=== PATIENT | male | born 1935 | race Hispanic/Latino ===

== ENCOUNTER 2020-07-26 12:36 | Inpatient (IN) | payer OTHER ==
[~2020-07-26] VITALS: Ht 165.1 cm; Wt 76.0 kg
[2020-07-26] MEDS ORDERED: ASPIRIN 325 MG TABLET ONE (13:01)
[2020-07-26 13:55] LABS: BASOPHILS % (AUTO) 0.5 % (0.0-5.0); EOSINOPHILS % (AUTO) 1.8 % (0.0-8.0); HEMATOCRIT 40.3 % (42-54); LYMPHOCYTES % (AUTO) 17.3 % (21.0-51.0); MEAN CORPUSCULAR HEMOGLOBIN 33.9 pg (27.0-33.0); MEAN CORPUSCULAR HGB CONC 34.2 g/dL (32.0-36.0); MONOCYTES % (AUTO) 10.4 % (3.0-13.0); NEUTROPHILS % (AUTO) 69.6 % (40.0-77.0); PLATELET COUNT (AUTO) 140 K/uL (130-400); RED BLOOD CELL COUNT(AUTO) 4.07 MIL/uL (4.50-6.20); RED CELL DISTRIBUTION WIDTH 13.5 % (11.0-15.5); WHITE BLOOD COUNT (AUTO) 8.1 K/uL (4.8-10.8)
[2020-07-26 14:00] LABS: CREATININE 1.2 mg/dL (0.5-1.5)
[2020-07-26 14:05] LABS: ALBUMIN 3.6 g/dL (3.5-5.0); TOTAL PROTEIN, SERUM 6.8 g/dL (6.0-8.3)
[2020-07-26 14:07] LABS: INR 1.12 (0.85-1.15); PARTIAL THROMBOPLASTIN TIME 28.2 SEC (26.3-35.5)
[2020-07-26 22:16] LABS: INR 1.18 (0.85-1.15); PROTHROMBIN TIME 12.7 SEC (9.6-11.6)
[2020-07-26 23:58] VITALS: BP 134/86
[2020-07-27] MEDS ORDERED: PREG50CA63 PO (02:47)
[2020-07-27] MEDS ORDERED: MULT-1367 PO (02:47)
[2020-07-27] MEDS ORDERED: UBID100C10 PO (02:47)
[2020-07-27] MEDS ORDERED: AEC81 PO (02:47)
[2020-07-27] MEDS ORDERED: PREG25CA18 PO (02:47)
[2020-07-27] MEDS ORDERED: METF500S7 PO (02:47)
[2020-07-27] MEDS ORDERED: FURO20TA4 PO (02:47)
[2020-07-27] MEDS ORDERED: ISOS30TA11 PO (02:47)
[2020-07-27] MEDS ORDERED: FOLI0.8C2 PO (02:47)
[2020-07-27] MEDS ORDERED: METO-391 PO (02:47)
[2020-07-27 03:40] VITALS: BP_SYST 130; BP_SYST 140; BP_DIAS 71; BP_DIAS 99
[2020-07-27 04:31] LABS: INR 1.15 (0.85-1.15); PROTHROMBIN TIME 12.4 SEC (9.6-11.6)
[2020-07-27 04:35] LABS: PARTIAL THROMBOPLASTIN TIME > 120.0 SEC (26.3-35.5)
[2020-07-27] MEDS ORDERED: METOPROLOL TARTRATE 1 MG/ML 5ML VIAL IV PRN (05:00)
[2020-07-27] MEDS ORDERED: HEPARIN 25000 UNITS/D5W 250ML IV SCH (05:00)
[2020-07-27 07:30] VITALS: BP 138/97
[2020-07-27] MEDS ORDERED: METOPROLOL TARTRATE 25 MG TAB ONE (09:18)
[2020-07-27] MEDS: METOPROLOL TARTRATE 25 MG TAB PO SCH ×3 (09:20→21:59)
[2020-07-27] MEDS: APIXABAN 2.5 MG TABLET PO SCH ×2 (10:10→21:59)
[2020-07-27] MEDS: FUROSEMIDE 20 MG TABLET PO SCH (10:11)
[2020-07-27] MEDS: ISOSORBIDE MONO 30MG TAB SR PO SCH (10:11)
[2020-07-27] MEDS: CLOPIDOGREL BISULFATE 75 MG TAB PO SCH (10:11)
[2020-07-27 11:35] VITALS: BP 117/67
[2020-07-27 12:07] LABS: INR 1.12 (0.85-1.15); PARTIAL THROMBOPLASTIN TIME 40.8 SEC (26.3-35.5)
[2020-07-27] MEDS ORDERED: CLOP75TA14 PO (16:33)
--- NOTE | 2020-07-27 18:27 | NUR ---
BROOKS WITH PATIENT AT BEDSIDE FOR DISCHARGE PLANNING STTES HE LIVES ALONE, IS INDPENDENT, USES NO DME, DRIVES, NO PROVIDER NO HOME HEALTH STATES FOLLOW WITH [place] AND [facility] M[facility] CANCELLED APPOINTMENT D/Melissa FOSTER AND HE HAS NOT SEEN HIM AND WANTED A NEW SALES ENABLEMENT MANAGER, STATES USES BETINA MELENDEZ AT THE [place] FOR [place]OST APPOINTMENT AND [place] WHEN THE [place] IS T[place]. DCVignesh IS HOME DAUGHTER COLLETTE, NO LISTED ONTHE FACE SHEE WILL BE DRIVING HIM HOME Addendum: 07/28/20 at 1829 by ADRIAN MASSEY RN CM Amended: Links added.
[2020-07-27 19:38] VITALS: BP 101/62
[2020-07-27] MEDS ORDERED: NON-FORMULARY MEDICATION 1 EACH (Pregabalin 50 MG) PO SCH (21:00)
[2020-07-27] MEDS ORDERED: PREGABALIN 25 MG CAP PO SCH (21:00)
[2020-07-27] MEDS ORDERED: ATORVASTATIN CALCIUM 40 MG TABLET PO SCH (21:00)
[2020-07-27] MEDS ORDERED: NON-FORMULARY MEDICATION 1 EACH (Metformin HCl 500 MG) PO SCH (21:00)
[2020-07-27 23:58] VITALS: BP 97/57
[2020-07-28 03:53] VITALS: BP 122/74
[2020-07-28 05:41] LABS: MEAN CORPUSCULAR HEMOGLOBIN 33.6 pg (27.0-33.0); MEAN CORPUSCULAR HGB CONC 33.7 g/dL (32.0-36.0); MEAN CORPUSCULAR VOLUME 99.8 fL (79-99); RED BLOOD CELL COUNT(AUTO) 4.31 MIL/uL (4.50-6.20); RED CELL DISTRIBUTION WIDTH 13.5 % (11.0-15.5); WHITE BLOOD COUNT (AUTO) 7.4 K/uL (4.8-10.8)
[2020-07-28] MEDS: METOPROLOL TARTRATE 25 MG TAB PO SCH (05:56)
[2020-07-28 06:05] LABS: CREATININE 1.5 mg/dL (0.5-1.5); POTASSIUM 3.9 mmol/L (3.5-5.1)
[2020-07-28] MEDS ORDERED: METFORMIN HCL 500 MG TABLET PO SCH (08:00)
[2020-07-28 08:05] VITALS: BP 128/67
--- NOTE | 2020-07-28 08:18 | NUR ---
AM SHIFT ASSESSMENT,
[2020-07-28] MEDS: APIXABAN 2.5 MG TABLET PO SCH (08:54)
[2020-07-28] MEDS: FUROSEMIDE 20 MG TABLET PO SCH (08:55)
[2020-07-28] MEDS: CLOPIDOGREL BISULFATE 75 MG TAB PO SCH (08:55)
[2020-07-28] MEDS ORDERED: PREGABALIN 25 MG CAP PO SCH (09:00)
[2020-07-28] MEDS ORDERED: UBIDECARENONE 100 MG PO SCH (09:00)
[2020-07-28] MEDS ORDERED: MULTIVITAMIN TABLET PO SCH (09:00)
[2020-07-28] MEDS ORDERED: Ubidecarenone (Coq-10) 100 MG PO SCH (09:00)
[2020-07-28] MEDS ORDERED: FOLIC ACID 1 MG TABLET PO SCH (09:00)
[2020-07-28] MEDS ORDERED: NON-FORMULARY MEDICATION 1 EACH (Multivitamin 1 EACH) PO SCH (09:00)
[2020-07-28] MEDS ORDERED: METOPROLOL SUCCINATE 50 MG TAB.SR.24H PO SCH (09:00)
[2020-07-28] MEDS ORDERED: FOLIC ACID 0.8 MG PO SCH (09:00)
--- NOTE | 2020-07-28 11:30 | NUR ---
DR. BLUNT IN TO SEE PT, OK TO DISCHARGE IF OK WITH CARDIOLOGY.
[2020-07-28 11:56] VITALS: BP 94/54
[2020-07-28] MEDS ORDERED: MAGNESIUM 2GM PREMIX 50ML 50 ML IV PRN (12:30)
[2020-07-28] MEDS: ISOSORBIDE MONO 30MG TAB SR PO SCH (13:44)
[2020-07-28 16:45] VITALS: BP 136/78
[2020-07-28] MEDS ORDERED: MAGNESIUM OXIDE 400 MG TABLET PO SCH (17:25)
[2020-07-28] MEDS ORDERED: POTASSIUM CHLORIDE 20 MEQ ERTAB PO SCH (17:25)
--- NOTE | 2020-07-28 17:30 | NUR ---
DISCHARGED NOW USING TEACH BACK, HEART MONITOR AND SALINE LOCK REMOVED. WILL FOLLOW UP WITH HEART CLINIC AND DR. BLUNT IN 1 TO 2 WEEKS. DAUGHTER STATES SHE WILL CALL FOR APPTS. PT. VERBALIZED UNDERSTANDING OF ALL INST.GIVEN AND KNOWS HIS MEDS. WELL.
== END 2020-07-28 17:45 | disposition home or self-care (01) | DRG 310 ==
LOC: EDH 12:36 → EDHIP 15:03 → 4CH 23:12
PROVIDERS: ADMIT Internal Medicine; ATTEND Internal Medicine
DX: I48.0 Paroxysmal atrial fibrillation (principal); I48.92 Unspecified atrial flutter; D64.9 Anemia, unspecified; E11.9 Type 2 diabetes mellitus without complications; E78.5 Hyperlipidemia, unspecified; I25.10 Atherosclerotic heart disease of native coronary artery without angina pectoris; I49.3 Ventricular premature depolarization; Z95.5 Presence of coronary angioplasty implant and graft; I11.9 Hypertensive heart disease without heart failure
CPT/HCPCS: 36415; 71045; 80048; 80053; 82550; 82948; 83735; 84484; 85025; 85027; 85610; 85730; 93005; G0378; J3475; J3490